=== PATIENT | female | born 1930 | race Caucasian/White ===

== ENCOUNTER 2018-09-25 23:55 | Emergency (ER) | payer MEDICARE, OTHER ==
[~2018-09-25] VITALS: Ht 152.4 cm; Wt 45.4 kg
--- NOTE | 2018-09-26 00:10 | NUR ---
FLY OJEDA FROM HOME. AAOX3. NAD, BRAETHING EVEN AND UNLABORED. C/O FAMILY REPORTS THAT PT HAS NOT BEEN ALTERED, REPORTED THAT SHE IS ALSO FEELING WEEK AND HAD THE FEELING OF FAINTING PRIOR TO GOING HERE. FAMILY STATES THAT SHE IS ON ATB STARTING TODAY BECAUSE OF COLD, DOES NOT RECALL WHAT MEDICATION. NO NEUROLOGIC DEFICIT NOTED. PT SPEAKS MIN GERMAN MAINLY IN BELARUSIAN. TO ER BED 10. AT BEDSIDE FOR EVAL.
--- NOTE | 2018-09-26 00:30 | NUR ---
IV LINE OBTAINED ON R AC 20G. BLOOD DRAWN AND GIVEN TO ;AB TECH AT BEDSIDE. L WRIST IV LINE STILL GOOD.
[2018-09-26 00:35] LABS: BASOPHILS % (AUTO) 0.9 % (0.0-2.0); HEMATOCRIT 35 % (33-45); HEMOGLOBIN 11.9 g/dL (11.5-14.8); LYMPHOCYTES # (AUTO) 0.7 /CMM (0.8-4.8); LYMPHOCYTES % (AUTO) 32.7 % (20.0-44.0); MEAN CORPUSCULAR HGB CONC 34 g/dl (31.0-36.0); MEAN CORPUSCULAR VOLUME 94 fL (82-100); MONOCYTES # (AUTO) 0.4 /CMM (0.1-1.30); MONOCYTES % (AUTO) 15.5 % (2.0-12.0); NEUTROPHILS # (AUTO) 1.2 /CMM (1.8-8.9); NEUTROPHILS % (AUTO) 50.9 % (43.0-81.0); PLATELET COUNT (AUTO) 153 /CMM (150-450); RED BLOOD CELL COUNT(AUTO) 3.67 MIL/uL (4.0-5.2); WHITE BLOOD COUNT (AUTO) 2.3 K/uL (4.3-11.0)
[2018-09-26 00:51] LABS: ALANINE AMINOTRANSFERASE 35 U/L (12-78); ALBUMIN 3.2 g/dL (3.4-5.0); ALKALINE PHOSPHATASE 62 U/L (46-116); ASPARTATE AMINOTRANSFERASE 49 U/L (15-37); BILIRUBIN,DIRECT 0.1 mg/dL (0.0-0.2); BILIRUBIN,TOTAL 0.3 mg/dL (0.2-1.0); CALCIUM, SERUM 8.5 mg/dL (8.5-10.1); CARBON DIOXIDE 26 mmol/L (21-32); CHLORIDE 98 mmol/L (98-107); CREATININE 0.8 mg/dL (0.6-1.3); GLUCOSE 96 mg/dL (74-106); POTASSIUM 4.2 mmol/L (3.5-5.1); SODIUM SERUM 132 mmol/L (136-145); TOTAL PROTEIN, SERUM 6.4 g/dL (6.4-8.2); UREA NITROGEN, BLOOD 16 mg/dL (7-18)
--- NOTE | 2018-09-26 00:56 | NUR ---
URINE COLLECTED AND SENT TO LAB. PT IS BEING WHEELED TO CT ON [facility]
[2018-09-26 00:58] LABS: LYMPHOCYTES % (MANUAL) 31 % (16-48); MONOCYTES % (MANUAL) 12 % (0-11.0); NEUTROPHILS % (MANUAL) 57 (42-76)
[2018-09-26 01:00] LABS: APPEARANCE,URINE Clear (CLEAR); BILIRUBIN,URINE Negative (NEGATIVE); BLOOD, URINE Negative Ery/uL (NEGATIVE); COLOR,URINE Yellow (YELLOW); KETONES,URINE Trace (NEGATIVE); LEUKOCYTE ESTERASE ,URINE Negative (NEGATIVE); NITRITE, URINE Negative (NEGATIVE); PH,URINE 7.5 (5.0-8.0); PROTEIN,URINE Negative (NEGATIVE); UGLUCOSE Negative (NEGATIVE); UROBILINOGEN,URINE 0.2 EU/dL (0.2)
--- NOTE | 2018-09-26 01:07 | NUR ---
PT BACK FRM CT
[2018-09-26 01:13] LABS: BACTERIA,URINE Few /HPF (None Seen); SQUAMOUS EPITHELIAL CELL,UR Few /HPF (None Seen); WBC,URINE 0-2 /HPF (0-3)
--- NOTE | 2018-09-26 01:32 | NUR ---
CALLED ELIEL RE: CXR AND HEAD CT
[2018-09-26] MEDS ORDERED: MECLIZINE HCL 12.5 MG TABLET ONE (01:42)
--- NOTE | 2018-09-26 01:50 | NUR ---
SWALLOW ASSESSMENT DONE PRIOR TO FUEL BUYER, TOLERATED WELL, PASSED. MD MADE AWARE
[2018-09-26] MEDS ORDERED: MECLIZINE HCL 12.5 MG TABLET PO ONE (02:00)
--- NOTE | 2018-09-26 03:22 | NUR ---
pt in bed sleeping, nad, breathing even and unlabored.
--- NOTE | 2018-09-26 03:53 | NUR ---
Patient discharged to home in stable condition. Written and verbal after care instructions given. Patient verbalizes understanding of instruction.IV removed. Catheter intact and site benign. Pressure and 4x4 applied to site. No bleeding noted. Pt wheeled to car, pt transfer from wheelchair to car w/ min assist.
[2018-09-26 03:54] VITALS: BP 151/62
== END 2018-09-26 03:56 | disposition home or self-care (01) ==
LOC: ER 23:55
DX: R42 Dizziness and giddiness (principal); B34.9 Viral infection, unspecified; D72.819 Decreased white blood cell count, unspecified; R51 Headache; E78.5 Hyperlipidemia, unspecified; I25.10 Atherosclerotic heart disease of native coronary artery without angina pectoris; I10 Essential (primary) hypertension; R94.31 Abnormal electrocardiogram [ECG] [EKG]; Z88.1 Allergy status to other antibiotic agents
CPT/HCPCS: 36415; 70450; 71045; 80048; 80076; 81001; 82962; 83880; 84484; 85025; 85730; 93005; 99284; J8597; 81000-TC

== ENCOUNTER 2018-10-01 22:17 | Inpatient (IN) | payer MEDICARE, BC, OTHER ==
[~2018-10-01] VITALS: Ht 157.5 cm; Wt 40.8 kg
--- NOTE | 2018-10-01 22:30 | NUR ---
TO BED 1 BIB DAUGHTER IN LAW C/O WEAKNESS AND DIZZINESS X2 WEEKS, WORSE TODAY. RHONCHI HEARD BILATERALLY ON AUSCULTATION. PT AAOX4 NO ACUTE DISTRESS NOTED, RESP EVEN AND UNLABORED. PLACE PT ON CARDIAC MONITORING, CONTINUOUS POX. PENDING ER MD CASTRO.
[2018-10-01] MEDS ORDERED: IPRATROPIUM NEB FS 0.5 MG/2.5 ML AMPUL.NEB NEB ONE (23:00)
[2018-10-01] MEDS ORDERED: ALBUTEROL FS 2.5 MG/3 ML VIAL.NEB NEB ONE (23:00)
[2018-10-01] MEDS ORDERED: IV NS 0.9% 500 ML BAG IV ONE (23:00)
[2018-10-01 23:12] LABS: BASOPHILS % (AUTO) 0.6 % (0.0-2.0); EOSINOPHILS % (AUTO) 0.9 % (0.0-6.0); HEMATOCRIT 35 % (33-45); HEMOGLOBIN 11.9 g/dL (11.5-14.8); LYMPHOCYTES # (AUTO) 1.7 /CMM (0.8-4.8); LYMPHOCYTES % (AUTO) 37.3 % (20.0-44.0); MEAN CORPUSCULAR HGB CONC 34 g/dl (31.0-36.0); MEAN CORPUSCULAR VOLUME 93 fL (82-100); MONOCYTES # (AUTO) 0.5 /CMM (0.1-1.30); NEUTROPHILS # (AUTO) 2.3 /CMM (1.8-8.9); NEUTROPHILS % (AUTO) 51.2 % (43.0-81.0); PLATELET COUNT (AUTO) 214 /CMM (150-450); RED BLOOD CELL COUNT(AUTO) 3.76 MIL/uL (4.0-5.2); WHITE BLOOD COUNT (AUTO) 4.6 K/uL (4.3-11.0)
--- NOTE | 2018-10-01 23:15 | NUR ---
PT TRANSPORTED TO RADIOLOGY FOR CT.
[2018-10-01] MEDS ORDERED: ALBUTEROL FS 2.5 MG/3 ML VIAL.NEB ONE (23:21)
[2018-10-01] MEDS ORDERED: IPRATROPIUM NEB FS 0.5 MG/2.5 ML AMPUL.NEB ONE (23:21)
[2018-10-01 23:22] LABS: CALCIUM, SERUM 9.1 mg/dL (8.5-10.1); CARBON DIOXIDE 24 mmol/L (21-32); CHLORIDE 97 mmol/L (98-107); CREATININE 0.7 mg/dL (0.6-1.3); GLUCOSE 100 mg/dL (74-106); POTASSIUM 4.3 mmol/L (3.5-5.1); SODIUM SERUM 131 mmol/L (136-145); UREA NITROGEN, BLOOD 22 mg/dL (7-18)
--- NOTE | 2018-10-01 23:30 | NUR ---
PT BACK FROM RADIOLOGY. PENDING CT RESULT.
[2018-10-01 23:40] LABS: ALANINE AMINOTRANSFERASE 32 U/L (12-78); ALBUMIN 3.3 g/dL (3.4-5.0); ALKALINE PHOSPHATASE 69 U/L (46-116); ASPARTATE AMINOTRANSFERASE 40 U/L (15-37); BILIRUBIN,DIRECT 0.2 mg/dL (0.0-0.2); BILIRUBIN,TOTAL 0.5 mg/dL (0.2-1.0); TOTAL PROTEIN, SERUM 6.6 g/dL (6.4-8.2)
[2018-10-01 23:54] LABS: APPEARANCE,URINE Clear (CLEAR); BILIRUBIN,URINE Negative (NEGATIVE); BLOOD, URINE Trace-lysed Ery/uL (NEGATIVE); COLOR,URINE Yellow (YELLOW); KETONES,URINE Negative (NEGATIVE); LEUKOCYTE ESTERASE ,URINE Trace (NEGATIVE); NITRITE, URINE Negative (NEGATIVE); PROTEIN,URINE Negative (NEGATIVE); UGLUCOSE Negative (NEGATIVE); UROBILINOGEN,URINE 0.2 EU/dL (0.2)
[2018-10-01] MEDS ORDERED: GUAIFENESIN/D-METHORPHAN HB 5 ML UDC ONE (23:54)
[2018-10-02] MEDS ORDERED: GUAIFENESIN/D-METHORPHAN HB 5 ML UDC PO ONE
[2018-10-02] MEDS ORDERED: LEVOFLOXACIN 750 MG /D5W 150ML 150 ML IV ONE ×2
[2018-10-02 00:06] LABS: BACTERIA,URINE Few /HPF (None Seen); RBC,URINE 0-2 /HPF (0-2); SQUAMOUS EPITHELIAL CELL,UR Few /HPF (None Seen)
--- NOTE | 2018-10-02 00:15 | NUR ---
SHARATH LARKIN QUENCHING MACHINE OPERATOR AT BEDSIDE TO GLORIA DONNELLY.
--- NOTE | 2018-10-02 00:21 | NUR ---
REPORT CALLED TO WIND OPERATIONS MANAGERARTEM STEWARD. WILL TRANSPORT PT VIA ACLS PROTOCOL.
[2018-10-02] MEDS ORDERED: ONDANSETRON HCL/PF 4 MG/2 ML VIAL IVP PRN (00:30)
[2018-10-02] MEDS: ENOXAPARIN SODIUM 40 MG/0.4 ML DISP.SYRIN SQ SCH ×2 (00:30→10:59)
[2018-10-02] MEDS ORDERED: MAGNESIUM HYDROXIDE 30 ML UDC PO PRN ×2 (00:30)
[2018-10-02] MEDS ORDERED: Z GUARD REMEDY 2 OZ OINT TP PRN (00:30)
[2018-10-02] MEDS ORDERED: ACETAMINOPHEN 650 MG/SUPP.RECT RC PRN (00:30)
[2018-10-02] MEDS ORDERED: BISACODYL SUPP (10 MG) 10 MG/SUPP.RECT SUPP.RECT RC ONE ×2 (00:30→09:00)
--- NOTE | 2018-10-02 02:05 | NUR ---
TD RN NOTES RECEIVED PT ON BED. A/O X 4 WITH SON AT BEDSIDE. ON TELE MONITOR SR 60. IV ACCESS PATENT AND INTACT IN LAC G 20. ON ROOM AIR SATURATING 98% NO RESPIRATORY DISTRESS NOTED. PHYSICAL ASSESSMENT DONE, BELONGING LIST CHECK. HEAD OF BED ELEVATED. SIDE RAILS UP. CALL LIGHT WITHIN REACH. BED ALARM ON. WILL CONTINUE TO MONITOR PT CLOSELY.
[2018-10-02 02:09] VITALS: BP 124/51
[2018-10-02] MEDS: IV NS 0.9% 1,000 ML IV PRN ×3 (02:11→23:58)
--- NOTE | 2018-10-02 02:22 | NUR ---
TD RN NOTES INFORMED ONCALL, PT REFUSED SUPP DULCOLAX, PER PT SHE WANTS IT IN AM. PT ALSO REFUSED LOVENOX, SLIP BRIDGE OPERATOR INFORMED. HOME MED LIST WILL BE GIVEN BY SON IN AM.
[2018-10-02 04:00] VITALS: BP 112/54
[2018-10-02] MEDS: ALBUTEROL FS 2.5 MG/0.5 ML VIAL.NEB NEB SCH ×6 (04:49→23:10)
[2018-10-02] MEDS: IPRATROPIUM NEB FS 0.5 MG/2.5 ML AMPUL.NEB NEB SCH ×6 (04:49→23:11)
--- NOTE | 2018-10-02 06:12 | NUR ---
TD RN NOTES SPUTUM SPECIMEN RETURNED BY ADVANCED PRACTICE PROVIDER. PER ADVANCED PRACTICE PROVIDER SPECIMEN IS NOT GOOD ENOUGH. WILL ENDORSE TO THE AM NURSE.
--- NOTE | 2018-10-02 07:02 | NUR ---
TD RN NOTES NO ACUTE CHANGES NOTED DURING THE SHIFT. PROVIDED COMFORT AND SAFETY. ENDORSED TO THE AM NURSE ABOUT DVT PUMPS AND HOME MED LIST TO BE GIVEN BY SON IN AM.
[2018-10-02] MEDS ORDERED: METO-356 PO (07:22)
[2018-10-02] MEDS ORDERED: LEVO50TA8 PO (07:23)
[2018-10-02] MEDS ORDERED: TRIM100T11 PO (07:25)
[2018-10-02] MEDS ORDERED: SIMV40TA5 PO (07:26)
[2018-10-02 08:00] VITALS: BP 127/53
[2018-10-02] MEDS ORDERED: FEXO1TAB11 PO (08:17)
[2018-10-02] MEDS ORDERED: MULT-447 PO (08:17)
[2018-10-02] MEDS ORDERED: CALC-7 PO (08:17)
[2018-10-02] MEDS ORDERED: PANTOPRAZOLE 40 MG VIAL IV SCH (09:00)
[2018-10-02] MEDS: DOCUSATE SODIUM 100 MG CAPSULE PO SCH ×2 (10:46→16:14)
[2018-10-02] MEDS: GUAIFENESIN/D-METHORPHAN HB 5 ML UDC PO PRN ×2 (10:59→19:11)
[2018-10-02 12:00] VITALS: BP_SYST 159; BP_DIAS 51; BP_DIAS 59
[2018-10-02 16:00] VITALS: BP 123/59
[2018-10-02] MEDS: MAG HYDROX/AL HYDROX/SIMETH 30 ML UDC PO PRN (16:14)
[2018-10-02] MEDS: ENSURE ENLIVE 237 ML LIQUID (VANILLA) PO SCH ×2 (18:28→18:29)
--- NOTE | 2018-10-02 19:12 | NUR ---
Endorsed care to DIONNA Felton. Jeferson Garner RN
[2018-10-02 20:00] VITALS: BP 136/58
--- NOTE | 2018-10-02 20:12 | NUR ---
NARROW FABRIC CALENDERER RECEIVE PT IN BED A/O X 2, ON CARDIAC MONITORING SR 80 HR IN THE TELE MONITOR. RESPIRATIONS EVEN AND UNLABORED, STABLE, NO S/S OF DISTRESS, SAFETY MEASURES IN PLACE. WILL CONTINUE TO MONITOR
--- NOTE | 2018-10-02 20:12 | NUR ---
MS RN RECEIVE PT IN BED A/O X 1 CONFUSED, 1L NC 02 SAT 98%. RESPIRATIONS EVEN AND UNLABORED, STABLE, NO S/S OF DISTRESS, SAFETY MEASURES IN PLACE. WILL CONTINUE TO MONITOR Addendum: 10/02/18 at 2029 by GISELLE MALDONADO RN DISREGARD THIS DOCUMENTATION MISTAKEN ENTRY THIS IS FOR DIFFERENT PATIENT
[2018-10-03] VITALS: BP 133/59
--- NOTE | 2018-10-03 00:16 | NUR ---
Per pt wants oxygen while asleep pt placed on 1 lpm NC o2 sat at 99%
[2018-10-03] MEDS: IPRATROPIUM NEB FS 0.5 MG/2.5 ML AMPUL.NEB NEB SCH ×6 (03:07→23:01)
[2018-10-03] MEDS: ALBUTEROL FS 2.5 MG/0.5 ML VIAL.NEB NEB SCH ×6 (03:07→23:01)
[2018-10-03 04:00] VITALS: BP 124/56
--- NOTE | 2018-10-03 06:18 | NUR ---
MEMBER SERVICE SPECIALIST ASLEEP AND EASILY AWAKEN, ON CARDIAC MONITORING 75 HR SR IN THE TELE MONITOR. ON 1 LPM VIA NC 02 SAT 95% RESPIRATION EVEN AND UNLABORED. NO SIGNIFICANT CHANGES THROUGHOUT THE SHIFT. KEPT CLEAN AND DRY AND COMFORTABLE. NEEDS ATTENDED AND ANTICIPATED, NURSING CARE RENDERED, SON AT BEDSIDE, OFFLOAD HEELS AND ELBOWS AT ALL TIMES. SAFETY MEASURES AT ALL TIMES. ENDORSE TO THE NEXT SHIFT.
[2018-10-03 08:00] VITALS: BP 137/43
[2018-10-03] MEDS: LEVOFLOXACIN 750 MG /D5W 150ML 750 MG in PREMIX 1 EA IV SCH (09:00)
[2018-10-03] MEDS: DOCUSATE SODIUM 100 MG CAPSULE PO SCH ×2 (09:00→19:32)
[2018-10-03] MEDS: PANTOPRAZOLE 40 MG TABLET.DR PO SCH (09:00)
[2018-10-03] MEDS: ENSURE ENLIVE 237 ML LIQUID (VANILLA) PO SCH ×2 (09:09→17:00)
[2018-10-03] MEDS: GUAIFENESIN/D-METHORPHAN HB 5 ML UDC PO PRN (11:04)
[2018-10-03] MEDS: MAG HYDROX/AL HYDROX/SIMETH 30 ML UDC PO PRN (11:04)
[2018-10-03 12:00] VITALS: BP 130/37
[2018-10-03 14:32] LABS: BASOPHILS % (AUTO) 0.3 % (0.0-2.0); EOSINOPHILS % (AUTO) 0.7 % (0.0-6.0); HEMATOCRIT 31 % (33-45); HEMOGLOBIN 10.4 g/dL (11.5-14.8); LYMPHOCYTES # (AUTO) 0.6 /CMM (0.8-4.8); LYMPHOCYTES % (AUTO) 11.5 % (20.0-44.0); MEAN CORPUSCULAR HGB CONC 34 g/dl (31.0-36.0); MEAN CORPUSCULAR VOLUME 93 fL (82-100); MONOCYTES # (AUTO) 0.5 /CMM (0.1-1.30); MONOCYTES % (AUTO) 9.1 % (2.0-12.0); NEUTROPHILS # (AUTO) 4.4 /CMM (1.8-8.9); NEUTROPHILS % (AUTO) 78.4 % (43.0-81.0); PLATELET COUNT (AUTO) 231 /CMM (150-450); RED BLOOD CELL COUNT(AUTO) 3.28 MIL/uL (4.0-5.2); WHITE BLOOD COUNT (AUTO) 5.6 K/uL (4.3-11.0)
[2018-10-03] MEDS: IV NS 0.9% 1,000 ML IV PRN (14:38)
[2018-10-03 14:44] LABS: CALCIUM, SERUM 8.6 mg/dL (8.5-10.1); CARBON DIOXIDE 24 mmol/L (21-32); CHLORIDE 102 mmol/L (98-107); CREATININE 0.6 mg/dL (0.6-1.3); GLUCOSE 135 mg/dL (74-106); MAGNESIUM 1.7 mg/dL (1.8-2.4); PHOSPHORUS 1.6 mg/dL (2.5-4.9); POTASSIUM 4.1 mmol/L (3.5-5.1); SODIUM SERUM 136 mmol/L (136-145); UREA NITROGEN, BLOOD 10 mg/dL (7-18)
[2018-10-03] MEDS: ACETYLCYSTEINE 10% SOLN 400 MG/4 ML VIAL NEB SCH ×2 (15:09→23:01)
[2018-10-03 15:18] LABS: CHOLESTEROL 139 mg/dL (<200); HDL CHOLESTEROL 64 mg/dL (40-60); LDL 64 mg/dL (0-99); THYROID STIMULATING HORMONE 4.313 uIU/mL (0.358-3.74); TRIGLYCERIDES 57 mg/dL (30-150)
[2018-10-03 16:00] VITALS: BP 138/57
--- NOTE | 2018-10-03 16:16 | NUR ---
PATIENT C/O HEADACHE MILD PRN TYLENOL GIVEN PO.
[2018-10-03] MEDS ORDERED: ACETAMINOPHEN 325 MG TABLET PO PRN (16:30)
--- NOTE | 2018-10-03 19:10 | NUR ---
RN NOTES: RECEIVED AWAKE LYING ON SEMI FOWLERS POSITION, SON PRESENT AT BED SIDE FEEDING THE PATIENT WITH SOUP,WITH O2 AT 1L/MIN VIA NC,NO SOB OR SIGN OF RESPIRATORY DEPRESSION NOTED, A/O 2-3, ON MOLD HOISTER SR-80, BRP WITH ASSIST, CONTINENT BOTH B/B, IV CANNULA ON LFA G#22 WITH IVF OF NS AT 100 ML/HR, ORIENTED TO UNIT AND STAFF, FALL,SAFETY AND ASPIRATION PRECAUTION OBSERVED, BED LOW AND LOCKED, CALL LIGHT WITHIN EASY REACH.
[2018-10-03] MEDS: LACTOBACILLUS RHAMNOSUS GG 1 EACH CAP.SPRINK PO SCH (19:32)
[2018-10-03 20:00] VITALS: BP 157/46
--- NOTE | 2018-10-03 20:15 | NUR ---
RN NOTES: AY AROUND 1930 ROOM MOVE FROM 116-2 TO 110, SON IS AWARE, PATIENT ALSO AGREED FOR THE ROOM MOVE.
--- NOTE | 2018-10-03 23:20 | NUR ---
RN NOTES: -AT 2100 PATIENT WAS CLEAN AND CHANGE BY COUNTER TENDER, EVENING CARE RENDERED. -AT 2230 DAUGHTER IN LAW NOTIFIED RN THAT PATIENT IS HAVING RASHES ON THE BUTTOCKS AREA, WHEN RN CAME TO ASSESS, THERE IS NO RASH IN THE BUTTOCKS AREA, REQUEST COUNTER TENDER TO CHANGE DIAPER AND PUT Z-GUARD FOR SKIN PROTECTION. -SON REQUEST IF PATIENT CAN WALK ON THE AILE, EXPLAINED TO THEM ITS NIGHT TIME RIGHT NOW AND HER MOTHER WAS IN DEEP SLEEP BEFORE THEY CAME, SHE MIGHT HAVE DIZZINESS IF YOU ASK HER TO WALK AT THIS TIME AND SHE WILL BE HIGH RISK FOR FALL, SHE HAS POOR ORAL INTAKE AND ON IV HYDRATION.THE BEST TIME TO AMBULATE IS IN THE MORNING. FAMILY UNDERSTAND AND AGREED.
[2018-10-04] VITALS: BP 148/45
[2018-10-04] MEDS: ENOXAPARIN SODIUM 40 MG/0.4 ML DISP.SYRIN SQ SCH (01:31)
[2018-10-04] MEDS: IV NS 0.9% 1,000 ML IV PRN ×2 (03:00→19:53)
[2018-10-04] MEDS: ALBUTEROL FS 2.5 MG/0.5 ML VIAL.NEB NEB SCH ×7 (03:30→23:54)
[2018-10-04] MEDS: IPRATROPIUM NEB FS 0.5 MG/2.5 ML AMPUL.NEB NEB SCH ×7 (03:30→23:54)
--- NOTE | 2018-10-04 03:35 | NUR ---
FAMILY REFUSED RT TX AT THIS TIME, INFORM ATTENDING NURSE. NO SOB NOTED
--- NOTE | 2018-10-04 03:45 | NUR ---
RN NOTES: ASLEEP AT SHORT INTERVAL, IVF NEW BOTTLE STARTED AT 0301 NS AT 100 ML/HR ONGOING.KEPT ON CLOSE WATCH, FALL AND SAFETY PRECAUTION OBSERVED.
[2018-10-04 04:00] VITALS: BP 144/47
--- NOTE | 2018-10-04 06:55 | NUR ---
ARTEM NOTES: ENDORSED ASLEEP, WEIGH-90 LBS, CALLS AND NEEDS ATTENDED, ENDORSE MAYRA FOR CONTINUITY OF CARE. Addendum: 10/04/18 at 0703 by MEKA VICENTE RN CORRECTION: ENDORSED MIMI MÁRQUEZ. Addendum: 10/04/18 at 0725 by MEKA VICENTE RN ON SR=94.
--- NOTE | 2018-10-04 07:30 | NUR ---
BROOM HANDLE DIPPER INITIAL NOTES RECEIVED PT IN BED, LIGHTER CAPTAIN BATHING PT. SON AT BEDSIDE. PT A/OX2. ON TELE SR. ON 1L NC. O2 SAT WNL. LFA IV SITE #22. ON IV FLUIDS AT 100 ML/HR. BED IN LOCKED/LOWEST POSITION. CALL IN REACH. WILL CONT TO MONITOR.
[2018-10-04] MEDS: ACETYLCYSTEINE 10% SOLN 400 MG/4 ML VIAL NEB SCH ×3 (07:35→23:54)
[2018-10-04 08:00] VITALS: BP 147/51
[2018-10-04] MEDS: DOCUSATE SODIUM 100 MG CAPSULE PO SCH ×2 (08:53→17:10)
[2018-10-04] MEDS: LACTOBACILLUS RHAMNOSUS GG 1 EACH CAP.SPRINK PO SCH ×2 (08:53→17:09)
[2018-10-04] MEDS: PANTOPRAZOLE 40 MG TABLET.DR PO SCH (08:53)
[2018-10-04] MEDS: ENSURE ENLIVE 237 ML LIQUID (VANILLA) PO SCH ×2 (08:56→17:11)
[2018-10-04] MEDS ORDERED: DOCUSATE SODIUM 100 MG CAPSULE PO SCH (09:00)
[2018-10-04] MEDS ORDERED: GUAIFENESIN/D-METHORPHAN HB 5 ML UDC PO PRN (09:00)
[2018-10-04] MEDS ORDERED: diphenhydrAMINE HCL ELIX 25 MG/10 ML UDC PO PRN (09:00)
--- NOTE | 2018-10-04 09:54 | NUR ---
BUS VAN DRIVER NOTES EDITED COLACE ORDER: ORDERED TWICE.
[2018-10-04] MEDS: GUAIFENESIN/D-METHORPHAN HB 5 ML UDC PO PRN (12:22)
[2018-10-04 14:00] VITALS: BP 115/34
[2018-10-04 16:00] VITALS: BP 115/34
--- NOTE | 2018-10-04 18:56 | NUR ---
MS RN END OF SHIFT NOTES PT STABLE WITH SON AT BEDSIDE. BED IN LOCKED/LOWEST POSITION CALL LIGHT IN REACH. WILL ENDORSE TO PM NURSE FOR BLANCA.
[2018-10-04 20:00] VITALS: BP 129/53
[2018-10-05] VITALS: BP 120/50
[2018-10-05] MEDS: ENOXAPARIN SODIUM 40 MG/0.4 ML DISP.SYRIN SQ SCH (00:28)
[2018-10-05] MEDS: ALBUTEROL FS 2.5 MG/0.5 ML VIAL.NEB NEB SCH ×3 (03:30→12:40)
[2018-10-05] MEDS: IPRATROPIUM NEB FS 0.5 MG/2.5 ML AMPUL.NEB NEB SCH ×3 (03:30→12:39)
[2018-10-05 04:00] VITALS: BP 129/44
--- NOTE | 2018-10-05 06:15 | NUR ---
MS RN NOTE PATIENT TOLERATED THE NIGHT WELL NO S/S OF DISTRESS. PATIENT DENIES CHEST PAIN/ SOB. SON AT BEDSIDE. RFA 22G IV NOTED TO BE INFILTRATED, IV REMOVED PATIENT REFUSED TO HAVE ANOTHER IV PLACED MD NOTIFIED NO NEW ORDERS. PATIENT ENCOURAGED TO HYDRATE ORALLY. SAFETY PRECAUTIONS IN PLACE POC ENDORSED TO AM FOR BLANCA.
[2018-10-05] MEDS: ACETYLCYSTEINE 10% SOLN 400 MG/4 ML VIAL NEB SCH (07:37)
[2018-10-05 08:00] VITALS: BP 135/44
[2018-10-05] MEDS: PANTOPRAZOLE 40 MG TABLET.DR PO SCH (08:43)
[2018-10-05] MEDS: LEVOFLOXACIN 750 MG /D5W 150ML 750 MG in PREMIX 1 EA IV SCH (08:44)
[2018-10-05] MEDS: DOCUSATE SODIUM 100 MG CAPSULE PO SCH (08:44)
[2018-10-05] MEDS: ENSURE ENLIVE 237 ML LIQUID (VANILLA) PO SCH (08:45)
[2018-10-05] MEDS: LACTOBACILLUS RHAMNOSUS GG 1 EACH CAP.SPRINK PO SCH (08:47)
[2018-10-05] MEDS ORDERED: ACET325T53 PO (10:43)
[2018-10-05] MEDS ORDERED: LEVO500T90 PO (10:43)
[2018-10-05] MEDS ORDERED: DOCU-270 PO (10:43)
[2018-10-05] MEDS ORDERED: GUAI5SYR PO (10:43)
[2018-10-05] MEDS ORDERED: DIPH12.56 PO (10:43)
[2018-10-05] MEDS ORDERED: SIMETHICONE 80 MG TAB.CHEW PO PRN (11:00)
[2018-10-05 13:00] VITALS: BP 135/68
== END 2018-10-05 14:30 | DRG 193 ==
LOC: ER 22:17 → TELE-TD 10-02 01:16 → TELE1 10-02 01:46 → TELE-TD 10-02 01:54 → TELE1 10-03 14:16 → MEDSG1 10-04 10:39
PROVIDERS: ADMIT Registered Nurse; ATTEND Student in an Organized Health Care Education/Training Program
DX: J15.9 Unspecified bacterial pneumonia (principal); J96.01 Acute respiratory failure with hypoxia; E87.1 Hypo-osmolality and hyponatremia; J44.0 Chronic obstructive pulmonary disease with (acute) lower respiratory infection; K57.92 Diverticulitis of intestine, part unspecified, without perforation or abscess without bleeding; J06.9 Acute upper respiratory infection, unspecified; E78.5 Hyperlipidemia, unspecified; E03.9 Hypothyroidism, unspecified; I10 Essential (primary) hypertension; R53.1 Weakness; J44.9 Chronic obstructive pulmonary disease, unspecified; R79.89 Other specified abnormal findings of blood chemistry; R42 Dizziness and giddiness; K57.90 Diverticulosis of intestine, part unspecified, without perforation or abscess without bleeding; L23.9 Allergic contact dermatitis, unspecified cause; Z88.0 Allergy status to penicillin; Z88.2 Allergy status to sulfonamides; K59.00 Constipation, unspecified
CPT/HCPCS: 36415; 71045-TC; 80048-TC; 80061-TC; 80076-TC; 81000-TC; 83605-TC; 83735-TC; 83880; 84100-TC; 84443-TC; 84484-TC; 85025-TC; 85730-TC; 87040-TC; 87070-TC; 87081-TC; 87086-TC; 87400; 93307-TC; 93880-TC; 94640-TC; 94799-TC; 97110-TC; 97116-TC; 97530-TC; A4216; G0378; J1650; J1956; J7030; J7040